=== PATIENT | male | born 1970 | race Caucasian/White ===

== ENCOUNTER 2016-06-20 18:08 | Emergency (ER) | payer OTHER | END 2016-06-20 22:25 | disposition home or self-care (01) | LOC: ER 18:08 | DX: J44.1 Chronic obstructive pulmonary disease with (acute) exacerbation (principal); R11.2 Nausea with vomiting, unspecified; R19.7 Diarrhea, unspecified; K21.9 Gastro-esophageal reflux disease without esophagitis; I25.2 Old myocardial infarction; E78.00 Pure hypercholesterolemia, unspecified; F17.210 Nicotine dependence, cigarettes, uncomplicated; Z20.828 Contact with and (suspected) exposure to other viral communicable diseases; Z88.8 Allergy status to other drugs, medicaments and biological substances | CPT/HCPCS: 36415; 87502; 96361; 96374; 96375; J3370 ==